=== PATIENT | female | born 1990 | race Two or more races ===

== ENCOUNTER 2017-03-01 16:49 | Emergency (ER) | payer MEDICAID, OTHER ==
[~2017-03-01] VITALS: Ht 177.8 cm; Wt 100.7 kg
[2017-03-01] MEDS ORDERED: LANTUS SOL100 UNIT/1 SUBQ (17:36)
[2017-03-01] MEDS ORDERED: Famotidine 20 MG/ 2ML VIAL IVP ONE (17:45)
[2017-03-01 18:03] LABS: BASOPHILS % (AUTO) 1.4 % (0.0-2.0); EOSINOPHILS % (AUTO) 0.1 % (0.0-3.0); LYMPHOCYTES % (AUTO) 24.6 % (20.0-45.0); MEAN CORPUSCULAR HEMOGLOBIN 29.7 PG (27.0-31.0); MEAN CORPUSCULAR HGB CONC 33.8 G/DL (32.0-36.0); MEAN CORPUSCULAR VOLUME 88 FL (80-99); MEAN PLATELET VOLUME 5.6 FL (6.5-10.1); MONOCYTES % (AUTO) 8.1 % (1.0-10.0); NEUTROPHILS % (AUTO) 65.7 % (45.0-75.0); PLATELET COUNT 320 K/UL (150-450); RED BLOOD COUNT 4.23 M/UL (4.20-5.40); WHITE BLOOD COUNT 10.5 K/UL (4.8-10.8)
[2017-03-01 18:07] LABS: APPEARANCE,URINE CLEAR; KETONES,URINE 4+ (NEGATIVE); LEUKOCYTE ESTERASE ,URINE 2+ (NEGATIVE); NITRITE,URINE NEGATIVE (NEGATIVE); PH,URINE 6 (4.5-8.0); PROTEIN,URINE 3+ (NEGATIVE); UROBILINOGEN,URINE 4 MG/DL (0.0-1.0)
[2017-03-01 18:10] LABS: ALANINE AMINOTRANSFERASE 10 U/L (3-33); ALBUMIN/GLOBULIN RATIO 1.3 (1.0-2.7); ANION GAP 19 (5-15); ASPARTATE AMINO TRANSFERASE 20 U/L (5-40); CALCIUM 9.4 mg/dL (8.6-10.2); CARBON DIOXIDE 22 mEQ/L (20-30); CHLORIDE 91 mEQ/L (98-107); CREATININE 0.8 mg/dL (0.5-0.9); GLOMERULAR FILTRATION RATE > 60 mL/min (>60); HEMOLYSIS 123; LIPASE 28 U/L (< 60); POTASSIUM 4.9 mEQ/L (3.4-4.9); SODIUM 132 mEQ/L (135-145); TOTAL PROTEIN 7.2 g/dL (6.6-8.7)
[2017-03-01 18:15] LABS: BACTERIA,URINE MODERATE /HPF; SQUAMOUS EPITHELIAL CELL,UR FEW /LPF (NONE/OCC)
[2017-03-01 18:43] VITALS: BP 138/72
[2017-03-01] MEDS ORDERED: cefTRIAXone 1 GM in NS 55 ML IVPB ONE (19:30)
--- NOTE | 2017-03-01 20:27 | Emergency Room Report ---
History of Present Illness General Chief Complaint: Abdominal Pain Source: Patient Present Illness HPI 26-year-old female presents ED complaining of vomiting and abdominal pain. States she is approximately 7 weeks . States that since Sunday she's been having multiple episodes of vomiting. Unable to tolerate food. States there is no blood in her vomitus. States there is epigastric pain, 7/10, burning, nonradiating. Denies fevers or chills. Denies flank pain. Denies vaginal bleeding. States this is her first . States she is a diabetic and has not taken her medication in a few days because she's been vomiting. Accu-Chek within normal limits. No aggravating or relieving factors. Denies any other associated symptom Allergies: Coded Allergies: CITRUS AND DERIVATIVES (Verified Allergy, Unknown, 03/01/17) MACADAMIA NUT OIL (Verified Allergy, Unknown, 03/01/17) Patient History Past Medical History: DM Past Surgical History: none Pertinent Family History: none Social History: Denies: alcohol use, drug use, smoking Last Menstrual Period: 01/06/17 Now: Yes : 1 Para: 0 Reviewed Nursing Documentation: PMH: Agreed, PSxH: Agreed Nursing Documentation-PMH Hx Diabetes: Yes Review of Systems All Other Systems: negative except mentioned in HPI Physical Exam Vital Signs Date Time Temp Pulse Resp B/P Pulse Ox O2 Delivery O2 Flow Rate FiO2 03/01/17 17:07 98.1 90 15 132/74 99 Room Air Sp02 EP Interpretation: reviewed, normal General Appearance: no apparent distress, alert, GCS 15, non-toxic Head: normocephalic, atraumatic Eyes: bilateral eye PERRL, bilateral eye normal inspection ENT: hearing grossly normal, normal pharynx, no angioedema, normal voice Neck: full range of motion, supple/symm/no masses Respiratory: chest non-tender, lungs clear, normal breath sounds, speaking full sentences Cardiovascular #1: regular rate, rhythm, no edema Cardiovascular #2: 2+ carotid (R), 2+ carotid (L), 2+ radial (R), 2+ radial (L) , 2+ dorsalis pedis (R), 2+ dorsalis pedis (L) Gastrointestinal: normal bowel sounds, soft, non-distended, no guarding, no rebound, tenderness - epigastric Rectal: deferred Genitourinary: normal inspection, no CVA tenderness Musculoskeletal: back normal, gait/station normal, normal range of motion, non- tender Neurologic: alert, oriented x3, responsive, motor strength/tone normal, sensory intact, speech normal Psychiatric: judgement/insight normal, memory normal, mood/affect normal, no suicidal/homicidal ideation Reflexes: 3+ bicep (R), 3+ bicep (L), 3+ tricep (R), 3+ tricep (L), 3+ knee (R) , 3+ knee (L) Skin: normal color, no rash, warm/dry, well hydrated Lymphatic: no adenopathy Medical Decision Making Diagnostic Impression: Primary Impression: Qualified Codes: Z3A.08 - 8 weeks gestation of Additional Impressions: Gastritis Qualified Codes: K29.01 - Acute gastritis with bleeding UTI (urinary tract infection) Qualified Codes: N39.0 - Urinary tract infection, site not specified ER Course Hospital Course 26-year-old female presents to ED complaining of epigastric pain with N/V. + . diabetic Differential diagnoses include: gastrits, gastroenterits, ectopic , ovarian torsion/cyst, UTI Clinical course Patient placed on stretcher in ED. After initial history and physical I ordered labs, IV fluids, pepcid and Zofran and pelvic ultrasound. Labs-no leukocytosis, electrolytes okay, beta hCG greater than 70,000, UA + bacteria OB ultrasound-IUP detected with heart rate abx given. Upon reassessment patient states she feels better wishes to go home Diagnosis - , gastritis, UTI Stable and discharged to home with Rx zofran, zantac, keflex. 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 Return to ED if symptoms recur or worsen Labs Test 03/01/17 17:27 03/01/17 17:47 Urine Color Brown Urine Appearance Clear Urine pH 6 (4.5-8.0) Urine Specific [place] 1.025 (1.005-1.035) Urine Protein 3+ (NEGATIVE) Urine Glucose (UA) 1+ (NEGATIVE) Urine Ketones 4+ (NEGATIVE) Urine Occult Blood 1+ (NEGATIVE) Urine Nitrite Negative (NEGATIVE) Urine Bilirubin Negative (NEGATIVE) Urine Urobilinogen 4 MG/DL (0.0-1.0) Urine Leukocyte Esterase 2+ (NEGATIVE) Urine RBC 2-4 /HPF (0 - 2) Urine WBC 5-10 /HPF (0 - 2) Urine Squamous Epithelial Cells Few /LPF (NONE/OCC) Urine Bacteria Moderate /HPF (NONE) Urine HCG, Qualitative Positive White Blood Count 10.5 K/UL (4.8-10.8) Red Blood Count 4.23 M/UL (4.20-5.40) Hemoglobin 12.6 G/DL (12.0-16.0) Hematocrit 37.2 % (37.0-47.0) Mean Corpuscular Volume 88 FL (80-99) Mean Corpuscular Hemoglobin 29.7 PG (27.0-31.0) Mean Corpuscular Hemoglobin Concent 33.8 G/DL (32.0-36.0) Red Cell Distribution Width 11.0 % (11.6-14.8) Platelet Count 320 K/UL (150-450) Mean Platelet Volume 5.6 FL (6.5-10.1) Neutrophils (%) (Auto) 65.7 % (45.0-75.0) Lymphocytes (%) (Auto) 24.6 % (20.0-45.0) Monocytes (%) (Auto) 8.1 % (1.0-10.0) Eosinophils (%) (Auto) 0.1 % (0.0-3.0) Basophils (%) (Auto) 1.4 % (0.0-2.0) Sodium Level 132 mEQ/L (135-145) Potassium Level 4.9 mEQ/L (3.4-4.9) Chloride Level 91 mEQ/L (98-107) Carbon Dioxide Level 22 mEQ/L (20-30) Anion Gap 19 (5-15) Blood Urea Nitrogen 9 mg/dL (7-23) Creatinine 0.8 mg/dL (0.5-0.9) Estimat Glomerular Filtration Rate > 60 mL/min (>60) Glucose Level 172 mg/dL (74-106) Calcium Level 9.4 mg/dL (8.6-10.2) Total Bilirubin 0.6 mg/dL (0.0-1.2) Aspartate Amino Transf (AST/SGOT) 20 U/L (5-40) Alanine Aminotransferase (ALT/SGPT) 10 U/L (3-33) Alkaline Phosphatase 39 U/L (35-104) Total Protein 7.2 g/dL (6.6-8.7) Albumin 4.1 g/dL (3.5-5.2) Globulin 3.1 g/dL Albumin/Globulin Ratio 1.3 (1.0-2.7) Lipase 28 U/L (< 60) Human Chorionic Gonadotropin, Quant 22021 mIU/mL CT/MRI/US Diagnostic Results CT/MRI/US Diagnostic Results : Imaging Test Ordered: OB US Impression IUP.gestational sac. yolk sac. approximately 8 weeks. FHR 175. no free fluid Last Vital Signs Date Time Temp Pulse Resp B/P Pulse Ox O2 Delivery O2 Flow Rate FiO2 03/01/17 18:43 98.7 82 20 138/72 100 Room Air Status: improved Disposition: HOME, SELF-CARE Condition: Stable Scripts Cephalexin* (KEFLEX*) 500 Mg Capsule 500 MG ORAL Q6H, #28 CAP 0 Refills Prov: JENNIFER CHOPRA M.D. 03/01/17 Ondansetron Odt* (ZOFRAN ODT*) 4 Mg Tab.rapdis 4 MG ORAL Q6H Y for Nausea & Vomiting, #30 TAB 0 Refills Prov: JENNIFER CHOPRA M.D. 03/01/17 Ranitidine Hcl* (ZANTAC*) 150 Mg Tablet 150 MG ORAL TWICE A DAY, #30 TAB Prov: JENNIFER CHOPRA M.D. 03/01/17 Referrals: [facility] (PCP) JENNIFER CHOPRA M.D. Mar 01, 2017 20:27
[2017-03-01] MEDS ORDERED: KEFLEX500 MG ORAL (20:33)
[2017-03-01] MEDS ORDERED: ZOFRAN ODT4 MG ORAL (20:33)
[2017-03-01] MEDS ORDERED: RANITIDINE HCL150 MG ORAL (20:33)
[2017-03-01 20:45] VITALS: BP 128/79
[2017-03-01 20:57] VITALS: BP 138/72
--- NOTE | 2017-03-02 11:02 | Diagnostic Imaging Report ---
Indication: Abdominal pain, pelvic pain, vomiting, positive test Technique: Transabdominal and transvaginal images Comparison: None Findings: Uterus measures 8.6 cm length by 6.7 cm AP. Within the endometrium, there is a gestational sac. This demonstrates a pole with a crown-rump length of 18 mm, corresponding to an estimated gestational age of 8 weeks 2 days. Yolk sac is also noted. No subchorionic hemorrhage. Left ovary measures 3 cm in length. The right ovary measures 3.4 cm in length. No adnexal mass. No free cul-de-sac fluid. Is questionably a small fundal fibroid Impression: 8 week 2 day, by crown-rump length measurement, single live intrauterine . No unusual features Possible small fundal fibroid
== END 2017-03-01 20:57 | disposition home or self-care (01) ==
LOC: EMR 17:20
DX: O26.891 Other specified pregnancy related conditions, first trimester (principal); Z3A.01 Less than 8 weeks gestation of pregnancy; K29.70 Gastritis, unspecified, without bleeding; O23.41 Unspecified infection of urinary tract in pregnancy, first trimester; O24.911 Unspecified diabetes mellitus in pregnancy, first trimester; Z91.018 Allergy to other foods
CPT/HCPCS: 36415; 76801; 76830; 80053; 81003; 81025; 82962; 83690; 84702; 85025; 87086; 96360; 96361; 96374; 96375; 99284; J0696; J2405; S0028

== ENCOUNTER 2017-03-04 11:37 | Emergency (ER) | payer MEDICAID, OTHER ==
[~2017-03-04] VITALS: Ht 177.8 cm; Wt 99.8 kg
[~2017-03-04 11:37] MED LIST: KEFLEX500 MG ORAL; LANTUS SOL100 UNIT/1 SUBQ; RANITIDINE HCL150 MG ORAL; ZOFRAN ODT4 MG ORAL
[2017-03-04 12:02] VITALS: BP 138/88
[2017-03-04 12:15] LABS: APPEARANCE,URINE CLEAR; KETONES,URINE 4+ (NEGATIVE); LEUKOCYTE ESTERASE ,URINE 1+ (NEGATIVE); NITRITE,URINE NEGATIVE (NEGATIVE); PH,URINE 6 (4.5-8.0); PROTEIN,URINE 4+ (NEGATIVE); UROBILINOGEN,URINE 4 MG/DL (0.0-1.0)
[2017-03-04] MEDS ORDERED: Mylanta II UD 30ml ORAL ONE (12:15)
[2017-03-04 12:30] LABS: BACTERIA,URINE FEW /HPF; MUCUS,URINE FEW /LPF (NONE/OCC); SQUAMOUS EPITHELIAL CELL,UR FEW /LPF (NONE/OCC)
[2017-03-04 12:46] LABS: BASOPHILS % (AUTO) 1.2 % (0.0-2.0); EOSINOPHILS % (AUTO) 0.1 % (0.0-3.0); LYMPHOCYTES % (AUTO) 24.3 % (20.0-45.0); MEAN CORPUSCULAR HEMOGLOBIN 28.3 PG (27.0-31.0); MEAN CORPUSCULAR HGB CONC 32.5 G/DL (32.0-36.0); MEAN CORPUSCULAR VOLUME 87 FL (80-99); MEAN PLATELET VOLUME 6.2 FL (6.5-10.1); NEUTROPHILS % (AUTO) 66.4 % (45.0-75.0); PLATELET COUNT 442 K/UL (150-450); RED BLOOD COUNT 4.61 M/UL (4.20-5.40); RED CELL DISTRIBUTION WIDTH 11.4 % (11.6-14.8); WHITE BLOOD COUNT 11.5 K/UL (4.8-10.8)
[2017-03-04 12:56] LABS: PROTHROMBIN TIME 10.4 SEC (9.30-11.50)
[2017-03-04 13:08] LABS: ALANINE AMINOTRANSFERASE 13 U/L (3-33); ALBUMIN/GLOBULIN RATIO 1.3 (1.0-2.7); ANION GAP 20 (5-15); ASPARTATE AMINO TRANSFERASE 11 U/L (5-40); CALCIUM 9.5 mg/dL (8.6-10.2); CARBON DIOXIDE 24 mEQ/L (20-30); CHLORIDE 90 mEQ/L (98-107); CREATININE 0.8 mg/dL (0.5-0.9); GLOMERULAR FILTRATION RATE > 60 mL/min (>60); HEMOLYSIS 2; LIPASE 35 U/L (< 60); POTASSIUM 3.5 mEQ/L (3.4-4.9); SODIUM 134 mEQ/L (135-145); TOTAL PROTEIN 7.4 g/dL (6.6-8.7)
[2017-03-04 14:00] VITALS: BP 135/57
--- NOTE | 2017-03-04 14:18 | Emergency Room Report ---
History of Present Illness General Chief Complaint: Vomiting Source: Patient Present Illness HPI Patient is a 26-year-old female who presented after increased epigastric pain as well as vomiting. Patient had prior history of approximately 6 weeks. Patient stated that she been having increased epigastric pain which rated to her back. Patient recently seen started on ranitidine and anti- emetics. The patient denies any marijuana use. Patient states that she had not been read drinking alcohol. Patient was reportedly . Allergies: Coded Allergies: CITRUS AND DERIVATIVES (Verified Allergy, Unknown, 03/01/17) MACADAMIA NUT OIL (Verified Allergy, Unknown, 03/01/17) Patient History Last Menstrual Period: 12/2016 Now: Yes - 8 weeks : 1 Para: 0 Reviewed Nursing Documentation: PMH: Agreed, PSxH: Agreed Nursing Documentation-PMH Past Medical History: No History, Except For Hx Diabetes: Yes Review of Systems All Other Systems: negative except mentioned in HPI Physical Exam Vital Signs Date Time Temp Pulse Resp B/P Pulse Ox O2 Delivery O2 Flow Rate FiO2 03/04/17 11:46 97.3 81 18 121/68 99 Room Air Sp02 EP Interpretation: reviewed, normal General Appearance: normal inspection, well appearing, no apparent distress, alert, GCS 15, non-toxic Head: atraumatic ENT: normal ENT inspection, hearing grossly normal, normal voice Neck: normal inspection, full range of motion, supple, no bony tend Respiratory: normal inspection, lungs clear, normal breath sounds, no respiratory distress, no retraction, no wheezing Cardiovascular #1: regular rate, rhythm, no edema Gastrointestinal: normal inspection, normal bowel sounds, non tender, soft, no guarding, no hernia Genitourinary: no CVA tenderness Musculoskeletal: normal inspection, back normal, normal range of motion Neurologic: normal inspection, alert, oriented x3, responsive, 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 Differential diagnoses included ischemic bowel, appendicitis, perforated viscus, abdominal aortic aneurysm, inferior myocardial infarction, viral gastroenteritis Because of complexity of patient's case laboratory testing and imaging studies were ordered. The patient started on IV fluids. She appeared to have some evidence of dehydration. Urinalysis showed urine ketones consistent with hyperemesis. The abdominal ultrasound showed no evidence of gallbladder stones. Patient started on dextrose containing IV fluids due to persistent vomiting. Patient was given Reglan IV. Patient was given IV fluids. The patient was discussed with Dr.Zoya Juan who recommended discharge after IV hydration was completed and trial of outpatient diclegis. 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 Patient was given prescription for Diclegis. She is advised to return if she began having a persistent vomiting worsening abdominal pain dizziness or other concerns. Labs Test 03/04/17 12:03 03/04/17 12:15 Urine Color Brown Urine Appearance Clear Urine pH 6 (4.5-8.0) Urine Specific [place] 1.020 (1.005-1.035) Urine Protein 4+ (NEGATIVE) Urine Glucose (UA) 2+ (NEGATIVE) Urine Ketones 4+ (NEGATIVE) Urine Occult Blood 1+ (NEGATIVE) Urine Nitrite Negative (NEGATIVE) Urine Bilirubin Negative (NEGATIVE) Urine Urobilinogen 4 MG/DL (0.0-1.0) Urine Leukocyte Esterase 1+ (NEGATIVE) Urine RBC 2-4 /HPF (0 - 2) Urine WBC 2-4 /HPF (0 - 2) Urine Squamous Epithelial Cells Few /LPF (NONE/OCC) Urine Bacteria Few /HPF (NONE) Urine Mucus Few /LPF (NONE/OCC) Urine Opiates Screen Negative (NEGATIVE) Urine Barbiturates Screen Negative (NEGATIVE) Phencyclidine (PCP) Screen Negative (NEGATIVE) Urine Amphetamines Screen Positive (NEGATIVE) Urine Benzodiazepines Screen Negative (NEGATIVE) Urine Cocaine Screen Negative (NEGATIVE) Urine Marijuana (THC) Screen Positive (NEGATIVE) White Blood Count 11.5 K/UL (4.8-10.8) Red Blood Count 4.61 M/UL (4.20-5.40) Hemoglobin 13.1 G/DL (12.0-16.0) Hematocrit 40.2 % (37.0-47.0) Mean Corpuscular Volume 87 FL (80-99) Mean Corpuscular Hemoglobin 28.3 PG (27.0-31.0) Mean Corpuscular Hemoglobin Concent 32.5 G/DL (32.0-36.0) Red Cell Distribution Width 11.4 % (11.6-14.8) Platelet Count 442 K/UL (150-450) Mean Platelet Volume 6.2 FL (6.5-10.1) Neutrophils (%) (Auto) 66.4 % (45.0-75.0) Lymphocytes (%) (Auto) 24.3 % (20.0-45.0) Monocytes (%) (Auto) 8.0 % (1.0-10.0) Eosinophils (%) (Auto) 0.1 % (0.0-3.0) Basophils (%) (Auto) 1.2 % (0.0-2.0) Prothrombin Time 10.4 SEC (9.30-11.50) Prothromb Time International Ratio 1.0 (0.9-1.1) Activated Partial Thromboplast Time 24 SEC (23-33) Sodium Level 134 mEQ/L (135-145) Potassium Level 3.5 mEQ/L (3.4-4.9) Chloride Level 90 mEQ/L (98-107) Carbon Dioxide Level 24 mEQ/L (20-30) Anion Gap 20 (5-15) Blood Urea Nitrogen 11 mg/dL (7-23) Creatinine 0.8 mg/dL (0.5-0.9) Estimat Glomerular Filtration Rate > 60 mL/min (>60) Glucose Level 201 mg/dL (74-106) Calcium Level 9.5 mg/dL (8.6-10.2) Total Bilirubin 0.8 mg/dL (0.0-1.2) Aspartate Amino Transf (AST/SGOT) 11 U/L (5-40) Alanine Aminotransferase (ALT/SGPT) 13 U/L (3-33) Alkaline Phosphatase 42 U/L (35-104) Total Protein 7.4 g/dL (6.6-8.7) Albumin 4.3 g/dL (3.5-5.2) Globulin 3.1 g/dL Albumin/Globulin Ratio 1.3 (1.0-2.7) Lipase 35 U/L (< 60) Chest X-Ray Diagnostic Results Chest X-Ray Ordered: No Last Vital Signs Date Time Temp Pulse Resp B/P Pulse Ox O2 Delivery O2 Flow Rate FiO2 03/04/17 12:02 84 20 138/88 100 Room Air 03/04/17 11:46 97.3 Status: improved Disposition: HOME, SELF-CARE Condition: Stable Scripts Doxylamine/Pyridoxine Hcl (REMY CAMPOS 10-10 MG TABLET) 1 Each Tablet.dr 1 EACH PO DAILY for Nausea & Vomiting, #30 TAB Prov: Abe Smith 03/04/17 Referrals: [facility] (PCP) Abe Smith Mar 04, 2017 14:18
[2017-03-04] MEDS ORDERED: DICLEGIS DR 101 EACH PO (14:33)
[2017-03-04] MEDS ORDERED: Metoclopramide 10mg/2ml Inj IVP ONE (15:30)
[2017-03-04 16:00] VITALS: BP 132/59
[2017-03-04] MEDS ORDERED: D5 1/2NS w/KCl 20mEq 1,000 ML IV SCH (16:00)
[2017-03-04] MEDS ORDERED: cefTRIAXone 1 GM in NS 55 ML IVPB ONE (16:15)
[2017-03-04 18:00] VITALS: BP 121/61
[2017-03-04 19:45] VITALS: BP 141/86
[2017-03-04 19:48] VITALS: BP 141/86
--- NOTE | 2017-03-06 11:41 | Diagnostic Imaging Report ---
Indication: Right upper quadrant pain Technique: [place]ova-scale and duplex images of the upper abdomen were obtained Comparison: None Findings: Gallbladder is unremarkable, without stones, wall thickening, nor pericholecystic fluid. Sonographic Green's sign is negative. Common bile duct measures 3 mm in diameter. No intrahepatic biliary ductal dilatation. Liver demonstrates normal echogenicity, no focal abnormality. Portal vein and hepatic veins are patent. Pancreas is unremarkable. Spleen is unremarkable. Left kidney measures 12.4 cm in length. Right kidney measures 11.5 cm length. Both kidneys demonstrate normal echogenicity. There is equivocal fullness of the right upper pole renal collecting system. There is an 11 mm right upper pole renal cyst. Non-aneurysmal abdominal aorta . Impression: Negative for gallstones or dilated ducts Equivocal focal right upper pole renal collecting system fullness, significance/etiology uncertain Incidental finding small right upper pole renal cyst
== END 2017-03-04 20:08 | disposition home or self-care (01) ==
LOC: EMR 12:05
DX: O21.9 Vomiting of pregnancy, unspecified (principal); O23.41 Unspecified infection of urinary tract in pregnancy, first trimester; Z3A.08 8 weeks gestation of pregnancy; O26.891 Other specified pregnancy related conditions, first trimester; R10.13 Epigastric pain; O24.911 Unspecified diabetes mellitus in pregnancy, first trimester; Z91.018 Allergy to other foods
CPT/HCPCS: 36415; 76700; 80053; 80300; 81003; 82962; 83690; 85025; 85610; 85730; 96360; 96374; 96375; 99284; J0696; J2405; J2765